=== PATIENT | female | born 1970 | race Hispanic/Latino ===

== ENCOUNTER 2023-07-21 21:30 | Emergency (ER) | payer SELFPAY ==
[2023-07-21] MEDS ORDERED: Ibuprofen 800 MG TAB ONE (21:38)
== END 2023-07-21 22:25 | disposition home or self-care (01) ==
LOC: MADERS 21:30
DX: S00.03XA Contusion of scalp, initial encounter (principal); I10 Essential (primary) hypertension; V69.40XA Driver of heavy transport vehicle injured in collision with unspecified motor vehicles in traffic accident, initial encounter
CPT/HCPCS: 70450